=== PATIENT | male | born 1980 | race Caucasian/White ===

== ENCOUNTER 2016-09-29 14:09 | Emergency (ER) | payer OTHER ==
[~2016-09-29] VITALS: Ht 185.4 cm; Wt 85.0 kg
[2016-09-29 14:15] VITALS: TEMP 36.5; Ht 185.4 cm; Wt 85.0 kg
[2016-09-29] MEDS ORDERED: MULT-600 PO (14:48)
--- NOTE | 2016-09-29 14:54 | DIAGNOSTIC IMAGING REPORT ---
RIGHT KNEE 3 VIEWS HISTORY: R patellar injury/knee pain Right COMPARISON: None. FINDINGS: There is no fracture or dislocation. No joint effusion. Thickening at the quadriceps tendon. No radiopaque foreign bodies. IMPRESSION: No fractures within the right knee. Thickening at the quadriceps tendon. This may represent a partial tear/tendinopathy. Electronically signed by: Erich Edmondson M.D. 09/29/2016 2:53 PM Dictated Date/Time: 09/29/2016 2:52 PM
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
[2016-09-29 15:38] VITALS: BP 113/63; PULSE 73; O2SAT 95
== END 2016-09-29 15:39 | disposition home or self-care (01) ==
LOC: C.EDB 14:11 → C.EDD 15:39
DX: S80.01XA Contusion of right knee, initial encounter (principal); W22.8XXA Striking against or struck by other objects, initial encounter; Y99.0 Civilian activity done for income or pay

== ENCOUNTER → 2016-10-19 | Outpatient (CLI) | payer OTHER ==
[~2016-10-19] MED LIST: MULT-600 PO
--- NOTE | 2016-10-19 08:37 | DIAGNOSTIC IMAGING REPORT ---
RIGHT LOWER EXT JOINT WITHOUT CLINICAL HISTORY: 36 years-old Male presenting with right knee effusion, right knee injury, blunt trauma, superior pain as well as medially and laterally for 3 weeks duration. TECHNIQUE: Multisequence, multiplanar MR imaging of the right knee was performed without the use of intravenous contrast. IV contrast: None. COMPARISON: Correlation made plain radiographs from 09/29/2016. FINDINGS: Localizer images: Unremarkable. Focal cortical irregularity involving nearly the full-thickness of the cartilage in the medial patellar facet with focal subjacent bony edema. This region is heterogeneous on T2 and measures 7 mm in width. No well-defined linear T2 hyperintensity subjacent to the chondral irregularity to suggest delamination or within the bone to suggest instability of an osteochondral fragment. Remaining articular cartilage normal. Remaining bone marrow normal. Medial lateral menisci intact. Anterior and posterior cruciate ligaments intact. Medial collateral ligament intact. Lateral collateral ligament complex including the biceps femoris tendon, fibular collateral ligament, popliteus tendon, and iliotibial band intact. Quadriceps and patellar tendons normal. No large effusion. Tiny popliteal cyst. Normal muscle bulk and signal intensity. IMPRESSION: 1. Evidence of a focal osteochondral lesion at the medial patellar facet without evidence of instability. 2. No abnormality of the quadriceps tendon as queried on radiograph. Electronically signed by: Waqar Guzmán M.D. 10/19/2016 8:35 AM Dictated Date/Time: 10/19/2016 8:29 AM
== END | disposition home or self-care (01) ==
LOC: C.MRI 07:21
PROVIDERS: ATTEND Family Medicine Sports Medicine
DX: S80.01XD Contusion of right knee, subsequent encounter (principal); X58.XXXD Exposure to other specified factors, subsequent encounter; M25.461 Effusion, right knee

== ENCOUNTER → 2017-01-28 | Day surgery (SDC) | payer OTHER ==
[2017-01-22 10:18] VITALS: Ht 185.4 cm; Wt 95.5 kg
[~2017-01-28] VITALS: Ht 185.4 cm; Wt 95.5 kg
[~2017-01-28] MED LIST changes: +ATROPINE SULFATE 0.1 MG/ML 5ML SYR IV PRN; +CEFAZOLIN SOD 2000MG/10 ML IV PUSH IV ONE; +DEXAMETHASONE SOD INJ 4 MG/ML VIAL ONE; +EpHEDrine SULFATE INJ 50 MG/ML AMP IV PRN; +EpINEphrine HCL INJ 1 MG/ML 5ML SYRINGE ONE; +FENTANYL CITRATE INJ 50 MCG/1 ML 2 ML VIAL IV PRN; +FENTANYL CITRATE INJ 50 MCG/1 ML 2 ML VIAL ONE; +HYDROmorphone INJ 0.5 MG/0.5 ML SYR IV PRN; +LACTATED RINGER'S 1000ML 1,000 ML IV SCH; +LIDO 2%/EPINEPHRINE 1:100000 20 ML VIAL INFIL ONE; +LIDOCAINE HCL 2% 2 ML VIAL (20MG/ML) ONE; +MIDAZOLAM HCL 1 MG/ML 2ML VIAL ONE; +MoRPHine SULFATE 2 MG/ML CARP IV PRN; +MoRPHine SULFATE 4 MG/ML 1 ML CARP\\VIAL IV PRN; +ONDANSETRON INJ 2 MG/ML 2 ML VIAL IV PRN; +ONDANSETRON INJ 2 MG/ML 2 ML VIAL ONE; +OXYCODONE/ACETAMINOPHEN 5-325 TAB PO PRN; +PROPOFOL IV EMULSION 10 MG/ML 20 ML VIAL IV ONE; +ROPIVACAINE 0.5% 5 MG/ML 30 ML VIAL ONE; +SODIUM CHLORIDE 0.9% 1000ML 1,000 ML IV SCH
--- NOTE | 2017-01-28 06:56 | History & Physical Bridge - [place] ---
H&P Re-Evaluation Bridge Note: I have examined the patient, reviewed the History & Physical and in the interval since the performance of the History & Physical I have noted the following changes of clinical significance: No changes noted
--- NOTE | 2017-01-28 10:02 | [facility] Post Operative Brief Note ---
Immediate Operative Summary Operative Date Jan 28, 2017. Pre-Operative Diagnosis Right Knee Osteochondral Defect of Patella Post-Operative Diagnosis Same Procedure(s) Performed Right knee diagnostic arthroscopy Right knee patellar osteochondral autograft transfer from superolateral trochlea Surgeon Dr. Mao Manager Academic Surgeon(s) Dr. Greco; Kane Hunter PA-C Estimated Blood Loss 10 cc Findings 9 mm diameter chondral lesion of patella grafted with 10 mm autograft plug from the superolateral trochlea Fluids (cc crystalloids) 1000cc Specimens None Drains None Anesthesia General with adductor canal block Complication(s) None Disposition Recovery Room / PACU
--- NOTE | 2017-01-28 10:21 | [facility] Operative Report ---
Operative Report Operative Date Jan 28, 2017. Pre-Operative Diagnosis Right Knee Osteochondral Defect of Patella Post-Operative Diagnosis Same Procedure(s) Performed Right knee diagnostic arthroscopy Right knee patellar osteochondral autograft transfer from superolateral trochlea Surgeon Dr. Mao Grinder Set Up Operator Surface Surgeon(s) Dr. Greco; Kane Hunter PA-C Estimated Blood Loss 10 cc Findings none Fluids (cc crystalloids) 1000cc Specimens None Complication(s) None Disposition Recovery Room / PACU I attest to the content of the Intraoperative Record and any orders documented therein. Any exceptions are noted below.
--- NOTE | 2017-01-28 10:25 | Discharge Instructions ---
Discharge Instructions Date of Service Jan 28, 2017. Admission Reason for Admission: Right Knee Osteochondral Defect Of Patella Discharge Discharge Diagnosis / Problem: Right knee osteochondral defect of patella Discharge Goals Goal(s): Decrease discomfort, Improve function, Increase independence Activity Recommendations Activity Limitations: as noted below Lifting Limitations: until after follow-up appointment Exercise/Sports Limitations: until after follow-up appointment May Resume Sexual Activity: when tolerated Shower/Bathe: tomorrow, keep incision dry Driving or Machine Use: No driving until cleared by orthopedic surgeon Weightbearing Status: Right weightbearing (as tolerated with brace in place) . Instructions / Follow-Up Instructions / Follow-Up Post-operative Instructions Dear Patient and Family/Friends, Before you are discharged from the hospital, it is important to know what to expect when you get home after surgery. To that end, we have created this sheet of discharge instructions which covers many commonly asked questions. Make sure you go through this sheet in its entirety with your nurse before you are discharged. Please note that we will go over the specifics of your surgery and recovery when you return for your first post-operative visit. Sincerely, Dr. Mao Pain Expect to be in a fair amount of pain after surgery. Remember, our goal is not to eliminate your pain, but to make it tolerable. It is a good idea to stay ahead of your pain by taking the medications you were prescribed once you get home. Typically, the pain starts improving 3-7 days after surgery. You should start weaning off the narcotic pain medication (oxycodone, hydrocodone, hydromorphone, morphine) as soon as your pain improves. Please call our office if your pain is not adequately controlled. Ice Ice your operative site at least 5 times a day for 15-30 minutes at a time. Make sure you have a thin cloth between the ice or cooling unit and your skin to prevent dowling bite. This is especially important if you received a nerve block. Continue icing your operative site for the first 5-7 days after surgery , then as needed. Diet/Nausea/Vomiting Start by drinking clear liquids and eating crackers. If you can tolerate this, then you may resume your normal diet. If you feel nauseated or vomit, take Zofran/ondansetron (if prescribed). Please call our office if you have intractable nausea or vomiting, or, if after hours, you may go to the Emergency Room for help. Constipation Constipation is a common side effect of narcotic pain medication. If you have not had a bowel movement within 2 days after surgery, we recommend purchasing an over the counter laxative such as Milk of Magnesia, Dulcolax, or Miralax from a local pharmacy, and taking it as instructed. Call our clinic if any questions. Slings and Braces If you were placed in a sling or brace, it must be worn at all times, including sleep. You may remove your sling or brace for physical therapy, home exercises , and showering. The length of time you will be in your brace and range of motion restrictions depends on what surgery you had; these details will be reviewed at your first post-operative appointment. Nerve block The anesthesia team sometimes places a nerve block to help with post-operative pain control. This results in significant numbness and inability to move the extremity. The nerve block usually wears off in 8-12 hours, but sometimes can last up to 24 hours. Please call our office if you are still unable to move your extremity after 24 hours, unless you received a pain pump to take home. Nerve blocks typically wear off quickly, so start taking pain medication as soon as you start feeling soreness near your surgical site. Weight bearing and Range of Motion. Do not bear any weight through your operative extremity immediately after surgery. If you had upper extremity surgery, do not lift anything with that arm. If you are in a knee brace, keep it locked in place until your follow-up. We will discuss your weight bearing, range of motion, and lifting restrictions in detail at your first post-operative appointment. Continuous Passive Motion (CPM) Machine If you were prescribed a CPM machine, it will start after your first post- operative appointment, at which time we will give you instructions on the range of motion settings and duration of treatment Physical therapy You will be given a prescription for physical therapy or occupational therapy at your first post-operative appointment. Typically, patients start therapy within 1 week of surgery Wound care and showering We will inspect your wound at your first post-operative visit, and may do a dressing change at that time. Most patients will be in a water-proof dressing that is removed 14 days after surgery. It is normal to see some dried blood on the dressing. Do not remove your dressing, paper strips or sutures yourself unless you are given permission. Showering is allowed the day after surgery. Do not scrub or remove any dressings. The wound should not be submerged underwater (i.e. in a bathtub or pool) until 4 weeks after surgery TA stockings If you were given white stockings, these are to be worn at all times except to shower (on both legs) for the first 2 weeks after surgery. Driving You may not drive while taking narcotic pain medication or while in a cast, splint, sling or brace. You, the patient, need to make the final determination about when you are safe to drive, however, the earliest you may consider driving after surgery is below: Hand/Wrist/Elbow Surgery: 3 days Shoulder Surgery: 2 weeks Hip,/Knee/Ankle Surgery: 4 weeks Fracture repair: 6 weeks Return to Work Your return to work depends on what surgery was done and what type of work you do. Please bring any paperwork your employer needs completed to your first post -operative visit. Also, bring a description of your job duties, as this helps us to understand what risks you may face at work. Travel Avoid long distance travel (greater than 1 hour) in airplanes and cars for the first 6 weeks after surgery. If you must travel, you need to have a Doppler ultrasound done before you travel to rule out a blood clot in your legs. Follow-up You should have a follow-up appointment already scheduled 1-2 days after surgery. If not, please contact our office to make this appointment before you leave the hospital. When to call the office It is normal to have swelling and bruising in the limb that was operated on. This will improve with time. It is also normal to have fevers for the first 2 days after surgery. Reasons you should call your doctor include: Uncontrolled pain; Nausea, vomiting, or constipation that does not improve with medication; Fevers over 101.5, chills, sweats; Drainage or bleeding from the wound; Foul odor; Spreading areas of redness; Any other concerns Current Hospital Diet Patient's current hospital diet: Discharge Diet Recommended Diet: Regular Diet Procedures Procedures Performed: Right knee diagnostic arthroscopy Right knee patellar osteochondral autograft transfer from superolateral trochlea Pending Studies Studies pending at discharge: no Medical Emergencies . Who to Call and When: Medical Emergencies: If at any time you feel your situation is an emergency, please call 911 immediately. . Non-Emergent Contact Non-Emergency issues call your: Primary Care Provider Call Non-Emergent contact if: you have a fever, temperature is above 101.5, your pain is not controlled, your pain is worsening, wound has increased drainage, you have any medication questions . "Provider Documentation" section prepared by Giovani Hunter. . VTE Core Measure Inpt VTE Proph given/why not?: Other Anticoagulation (Aspirin EC 81 mg), Bertrand Aburto [place] Drug Monitoring Program Search Results: patient reviewed within database, no issues identified, see additional documentation
--- NOTE | 2017-01-28 11:16 | Anesthesia Progress Nt - [facility] ---
Anesthesia Post Op Note Date & Time Jan 28, 2017 at 11:16 Vital Signs Pain Intensity: 3 Vital Signs Past 12 Hours Date Time Temp Pulse Resp B/P (MAP) Pulse Ox O2 Delivery O2 Flow Rate FiO2 01/28/17 11:10 116/74 01/28/17 11:08 36.4 71 18 116/64 98 Room Air 01/28/17 11:08 70 22 97 01/28/17 11:08 68 22 01/28/17 11:05 116/64 01/28/17 11:03 67 12 98 01/28/17 11:03 67 12 01/28/17 11:00 116/74 01/28/17 10:58 74 12 01/28/17 10:58 72 12 99 01/28/17 10:57 71 13 99 01/28/17 10:57 72 13 01/28/17 10:56 127/73 01/28/17 10:52 73 13 96 01/28/17 10:52 75 13 01/28/17 10:51 127/82 01/28/17 10:47 78 16 01/28/17 10:47 16 01/28/17 10:45 123/72 01/28/17 10:42 72 10 01/28/17 10:42 10 01/28/17 10:37 69 12 01/28/17 10:37 69 12 100 01/28/17 10:36 125/65 01/28/17 10:32 70 12 100 01/28/17 10:32 69 12 01/28/17 10:30 125/73 01/28/17 10:27 70 12 01/28/17 10:27 70 12 100 01/28/17 10:26 71 12 01/28/17 10:26 71 12 100 01/28/17 10:25 116/73 01/28/17 10:22 119/72 01/28/17 10:21 74 22 01/28/17 10:21 74 22 98 01/28/17 10:21 36.4 74 16 119/72 97 Mask 01/28/17 08:40 0 01/28/17 08:36 118/77 01/28/17 08:35 64 01/28/17 08:35 64 15 01/28/17 08:30 62 01/28/17 08:30 62 14 123/76 100 01/28/17 08:25 65 10 111/77 01/28/17 08:20 64 14 121/76 01/28/17 08:20 64 01/28/17 08:15 71 14 120/73 99 01/28/17 08:15 71 01/28/17 08:10 67 16 119/80 01/28/17 08:05 67 16 122/80 01/28/17 08:05 67 01/28/17 08:00 65 15 118/77 01/28/17 07:59 36.6 79 18 117/76 (90) 98 Room Air 01/28/17 07:55 64 13 120/79 100 01/28/17 07:55 64 01/28/17 07:50 77 114/78 01/28/17 07:50 74 21 126/73 01/28/17 07:05 79 117/76 98 01/28/17 07:05 79 Notes Mental Status: alert / awake / arousable, participated in evaluation Pt Amnestic to Procedure: Yes Nausea / Vomiting: adequately controlled Pain: adequately controlled Airway Patency, RR, SpO2: stable & adequate BP & HR: stable & adequate Hydration State: stable & adequate Anesthetic Complications: no major complications apparent
--- NOTE | 2017-01-28 11:20 | OPERATIVE REPORT ---
DATE OF OPERATION: 01/28/2017 PREOPERATIVE DIAGNOSIS: Right knee patellar osteochondral lesion. POSTOPERATIVE DIAGNOSIS: Same. OPERATIONS PERFORMED: 1. Right knee diagnostic arthroscopy. 2. Right knee Open patellar osteochondral autograft transfer. SURGEON: Waqar Mao MD. CRITICAL CARE NURSE PRACTITIONER SURGEONS: 1. Manuel Greco MD. 2. Giovani Hunter PA-C. IV FLUIDS: 1000 mL of crystalloid. ESTIMATED BLOOD LOSS: 10 mL. SPECIMENS: None. COMPLICATIONS: None. IMPLANTS: None. INDICATIONS: Mr. Banda is a 36-year-old male who sustained a work-related injury where he had a high energy impact of his patella on a piece of metal construction equipment. Since that time he has had anterior knee pain that has been refractory to conservative management. Physical examination reveals crepitus with range of motion and pain with patellar grind. He is tender to palpation along the medial facet of the patella. MRI shows a chondral lesion with underlying bone edema in the medial facet of the patella. I had a long discussion with him about the risks and benefits of surgery, alternatives to surgery and expected outcomes. After reviewing all these he elected to proceed with surgery. All questions were answered. Informed consent was signed. DESCRIPTION OF PROCEDURE: The patient was identified in the preoperative holding area where his surgical site was marked. He was given an adductor canal block by anesthesia and brought back to main operating room where he was placed on the operating room table and general anesthesia was administered. All bony prominences were padded. Perioperative antibiotics were administered. He was prepped and draped in the normal sterile fashion. Prior to incision, a multidisciplinary timeout was called. All in the room were in agreement. We began by exsanguinating the knee with an Esmarch bandage. The tourniquet was inflated to 250 mmHg. The portals and the incision site were injected with a total of 10 mL of 1% lidocaine with epinephrine. We then made our anterolateral portal. A medial working portal was created under direct visualization. We then performed diagnostic arthroscopy. Diagnostic arthroscopy findings were as follows: 1. The undersurface of the patella showed a bulbous chondral lesion along the medial facet that measured approximately 9 mm in diameter. The central aspect of the patella as well as the lateral facet were within normal limits. 2. The trochlea was normal. 3. Medial and lateral gutters were free of any loose bodies. 4. The medial compartment showed some grade 1 softening of the medial femoral condyle. The medial meniscus and medial tibial plateau were intact. 5. The lateral compartment was intact. Having completed our diagnostic arthroscopy, we then removed the arthroscopic instruments. Fluid was expressed out of the knee. We then made a 5 cm incision along the medial border of the patella. We dissected down through subcutaneous tissues to the level of fascia. Full thickness fascial skin flaps were raised to expose the border of the VMO as well as the anterior surface of the patella. We then incised leaving a 2 mm cuff of tissue along the medial border of the patella extending the arthrotomy proximally and distally for a total distance of approximately 6 cm, so that the patella could be everted. Once the patella was everted, it was held there and we sized the defect which was to a size 9 mm. We then drilled our central guide pin. We then reamed to a depth of approximately 13 mm, which was our preoperative plan. We then removed the reamer and the guidewire and trimmed up the cartilage, so we had a nice cylinder. The sizer was then used to gauge the proper sizing for the plug. The plug was measured to lowest depth of 12 mm and a highest depth of 14 mm. We recorded these measurements in superior, inferior, medial and lateral dimensions on the back table. We then opened up a 10 mm harvester harvesting kit. The patella was then subluxated laterally to expose the superolateral aspect of the trochlea. The harvester was then tamped down into position to harvest the graft. We tamped it down to a total depth of 14 mm. We then removed the graft which came back with lengths of a 13 mm and a 12 mm. We then slightly tamped the graft more proximally and bulleted the ends. We saved this bone graft which was placed down into the lesion to allow the plug to sit more prominently. We then tamped the plug down into position. An excellent press fit was obtained. The plug sat just about a millimeter below the cartilaginous surface. I therefore used a fresh 15 blade to gently trim the surrounding cartilaginous surface, most of which was diseased anyways so it was flushed with the level of our plug so we had a nice smooth surface. Once this was complete, I was very happy with the plug. The donor site was left alone. We irrigated out the knee to remove any bony or cartilage fragments. The knee was then dried. The arthrotomy was closed with a running 0 Vicryl suture. The tourniquet was let down and the deep dermis was closed with a running 3-0 Vicryl. Then, 3-0 Monocryl in a subcuticular fashion was used for the skin followed by Steri-Strips. Then, 10 mL Naropin was injected into the incision site for postoperative pain control. He was placed into sterile dressings and then the hinged knee brace locked in full extension. He was awoken from anesthesia and transferred to recovery room in stable condition. POSTOPERATIVE COURSE: The patient will be discharged home from the recovery room. He will be weightbearing as tolerated with his hinged knee brace locked in full extension for the next 6 weeks. His range of motion will be unlocked and work on immediate range of motion exercises to facilitate incorporation of the plug. He will be on aspirin for DVT prophylaxis. I attest to the content of the Intraoperative Record and any orders documented therein. Any exception s are noted below.
[2017-01-28 11:21] VITALS: TEMP 36.4
[2017-01-28 11:57] VITALS: BP 131/71; PULSE 74; O2SAT 96
== END | disposition home or self-care (01) ==
LOC: X.SURG 06:42
PROVIDERS: ATTEND Orthopaedic Surgery
DX: M93.861 Other specified osteochondropathies, right lower leg (principal)

== ENCOUNTER → 2017-03-08 | Outpatient (CLI) | payer OTHER ==
[~2017-03-08] MED LIST changes: -ATROPINE SULFATE 0.1 MG/ML 5ML SYR IV PRN; -CEFAZOLIN SOD 2000MG/10 ML IV PUSH IV ONE; -DEXAMETHASONE SOD INJ 4 MG/ML VIAL ONE; -EpHEDrine SULFATE INJ 50 MG/ML AMP IV PRN; -EpINEphrine HCL INJ 1 MG/ML 5ML SYRINGE ONE; -FENTANYL CITRATE INJ 50 MCG/1 ML 2 ML VIAL IV PRN; -FENTANYL CITRATE INJ 50 MCG/1 ML 2 ML VIAL ONE; -HYDROmorphone INJ 0.5 MG/0.5 ML SYR IV PRN; -LACTATED RINGER'S 1000ML 1,000 ML IV SCH; -LIDO 2%/EPINEPHRINE 1:100000 20 ML VIAL INFIL ONE; -LIDOCAINE HCL 2% 2 ML VIAL (20MG/ML) ONE; -MIDAZOLAM HCL 1 MG/ML 2ML VIAL ONE; -MoRPHine SULFATE 2 MG/ML CARP IV PRN; -MoRPHine SULFATE 4 MG/ML 1 ML CARP\\VIAL IV PRN; -ONDANSETRON INJ 2 MG/ML 2 ML VIAL IV PRN; -ONDANSETRON INJ 2 MG/ML 2 ML VIAL ONE; -OXYCODONE/ACETAMINOPHEN 5-325 TAB PO PRN; -PROPOFOL IV EMULSION 10 MG/ML 20 ML VIAL IV ONE; -ROPIVACAINE 0.5% 5 MG/ML 30 ML VIAL ONE; -SODIUM CHLORIDE 0.9% 1000ML 1,000 ML IV SCH
== END | disposition home or self-care (01) ==
LOC: C.RDSM 08:00
PROVIDERS: ATTEND Orthopaedic Surgery
DX: Z98.890 Other specified postprocedural states (principal)